=== PATIENT | female | born 1985 | race Caucasian/White ===

== ENCOUNTER 2019-10-26 17:08 | Emergency (ER) | payer MEDICAID ==
[~2019-10-26] VITALS: Ht 170.2 cm; Wt 77.3 kg
[2019-10-26 17:31] VITALS: Ht 170.2 cm; Wt 77.3 kg
[2019-10-26] MEDS ORDERED: TORADOL10 MG PO (19:05)
[2019-10-26] MEDS ORDERED: METHOCARBAMOL500 MG PO (19:05)
[2019-10-26 19:51] VITALS: BP 131/81
== END 2019-10-26 19:51 | disposition home or self-care (01) ==
LOC: D.ER 17:08
DX: S39.012A Strain of muscle, fascia and tendon of lower back, initial encounter (principal); M62.838 Other muscle spasm; M54.16 Radiculopathy, lumbar region; E03.9 Hypothyroidism, unspecified; W19.XXXA Unspecified fall, initial encounter; Y93.9 Activity, unspecified; Y92.9 Unspecified place or not applicable

== ENCOUNTER 2020-04-29 13:59 | Emergency (ER) | payer OTHER ==
[~2020-04-29] VITALS: Ht 170.2 cm; Wt 85.5 kg
[~2020-04-29 13:59] MED LIST: METHOCARBAMOL500 MG PO; TORADOL10 MG PO
[2020-04-29 14:05] VITALS: BP 134/82; Ht 170.2 cm; Wt 85.5 kg
[2020-04-29] MEDS ORDERED: SYNTHROID150 MCG PO (14:06)
[2020-04-29] MEDS ORDERED: NEURONTIN800 MG PO (14:07)
[2020-04-29] MEDS ORDERED: CYCLOBENZAPRINE10 MG PO (16:15)
[2020-04-29] MEDS ORDERED: VOLTAREN75 MG PO (16:15)
== END 2020-04-29 16:48 | disposition home or self-care (01) ==
LOC: D.ER 13:59
DX: S16.1XXA Strain of muscle, fascia and tendon at neck level, initial encounter (principal); S39.012A Strain of muscle, fascia and tendon of lower back, initial encounter; V89.2XXA Person injured in unspecified motor-vehicle accident, traffic, initial encounter; Y93.9 Activity, unspecified; Y92.9 Unspecified place or not applicable